=== PATIENT | female | born 1995 | race Caucasian/White ===

== ENCOUNTER 2018-02-02 21:30 | Emergency (ER) | payer BC ==
[~2018-02-02 21:30] MED LIST: AZIT-1 PO
[2018-02-02] MEDS ORDERED: MELA3TAB31 PO (21:41)
--- NOTE | 2018-02-02 21:43 | ER Report ---
History and Physical Time Seen By MD: 21:43 Hx. of Stated Complaint: PATIENT STATES SHE STARTED HAVING A LITTLE BIT OF PAIN IN RIGHT FLANK EARLIER TODAY HAD UA DONE AND WAS STARTED ON CIPRO, PATIENT HAS HAD ONCE DOSE OF THE CIPRO, PATIENT STATES THE FLANK PAIN HAS GOTTEN SIGNIFICANTLY WORSE THIS EVENING. PATIENT STATES IT HAS WAVES OF REALLY INTENSE PAIN OF 10/10. HPI/ROS CHIEF COMPLAINT: flank pain, urinary tract infection HISTORY OF PRESENT ILLNESS: This is a 22 year old female. She has been having right flank pain, had a UA done and started on Cipro for UTI. Has taken one dose today. Pain worsening and radiating to anterior abdomen. Starting to feel some pain on the right. Pain coming in waves. No fevers or chills. No chest pain or shortness of breath. Normal bowels. Dysuria and frequency. Allergies: Coded Allergies: Sulfa (Sulfonamide Antibiotics) (Verified Allergy, Intermediate, HIV ES, ) sulfamethoxazole (Verified Allergy, Mild, RASH, 06/20/15) trimethoprim (Verified Allergy, Mild, RASH, 06/20/15) Home Meds Active Scripts Ondansetron (ZOFRAN ODT) 4 Mg Tab.rapdis, 4 MG PO Q6H Y for NAUSEA/VOMITING, # 20 TAB.LESLIE 0 Refills Prov:YUMI SALDIVAR MD 02/02/18 Hydrocodone Bit/Acetaminophen (HYDROCODON-ACETAMINOPHEN 5-325) 1 Each Tablet, 1 EACH PO Q4H Y for PAIN, #12 TAB 0 Refills Prov:YUMI SALDIVAR MD 02/02/18 Ciprofloxacin Hcl (CIPROFLOXACIN HCL) 500 Mg Tablet, 500 MG PO Q12H, #8 TAB 0 Refills Prov:YUMI SALDIVAR MD 02/02/18 Reported Medications Melatonin (MELATONIN) 3 Mg Tablet, 6 MG PO QHS 02/02/18 Discontinued Scripts Azithromycin (ZITHROMAX) 250 Mg Tablet, 0 PO QDAY, #6 TAB Prov:CHELA BEACH DO 06/20/15 Reviewed Nurses Notes: Yes Hx Smoking: No Smoking Status: Never Smoker Constitutional Vital Sign - Last 24 Hours 02/02/18 02/02/18 02/02/18 02/02/18 21:36 21:45 22:00 22:15 Temp 98.9 Pulse 83 84 64 80 Resp 16 B/P (MAP) 126/80 Pulse Ox 96 98 97 91 O2 Delivery Room Air 02/02/18 02/02/18 02/02/18 02/02/18 22:30 22:35 23:00 23:05 Pulse ? 90 B/P (MAP) 122/79 (93) 115/71 (86) Pulse Ox 96 94 94 02/02/18 02/02/18 23:10 23:25 Pulse 78 78 B/P (MAP) 111/76 (88) Pulse Ox 92 92 Physical Exam General Appearance: The patient is alert. No acute distress. Eyes: Pupils are equal, round. No pallor, injection or icterus. ENT: Mucous membranes are moist. Respiratory: Lungs are clear to auscultation. Cardiovascular: Regular rate and rhythm. No murmurs, gallops or rubs. Normal capillary refill. Gastrointestinal: Abdomen is soft and non tender. Nondistended. Normal active bowel sounds. Neurological: Alert and oriented x3. Skin: Warm and dry. No rashes. Musculoskeletal: No tenderness in palpation of the lumbar spine and paraspinous muscles. DIFFERENTIAL DIAGNOSIS: After history and physical exam, differential diagnosis was considered for flank pain including but not limited to musculoskeletal causes, kidney stone, pyelonephritis, shingles, and intra-abdominal causes such as diverticulitis and appendicitis. Medical Decision Making Data Points Result Diagram: 02/02/18220402/02/182204 Laboratory Hematology Test 02/02/18 21:34 02/02/18 22:05 Urine Color Straw Urine Clarity Clear Urine pH 7.0 pH (4.8-9.5) Urine Specific [place] 1.006 Urine Protein Negative mg/dL (NEGATIVE) Urine Glucose (UA) Negative mg/dL (NEGATIVE) Urine Ketones Negative mg/dL (NEGATIVE) Urine Blood Small (NEGATIVE) Urine Nitrite Negative (NEGATIVE) Urine Bilirubin Negative (NEGATIVE) Urine Urobilinogen Negative mg/dL (0.2-1.9) Urine Leukocyte Esterase Small (NEGATIVE) Urine RBC 3 /HPF (0-2/HPF) Urine WBC 16 /HPF (0-5/HPF) Urine Squamous Epithelial Cells Moderate /LPF (</=FEW) Urine Transitional Epithelial Cells Moderate /LPF (NONE-FEW) Urine Bacteria Few /HPF (NONE-FEW) Urine Mucus None /HPF (NONE-FEW) Urine HCG, Qualitative Negative (NEGATIVE) Red Blood Count 4.60 M/uL (4.17-5.56) Mean Corpuscular Volume 89.4 fL (80.0-96.0) Mean Corpuscular Hemoglobin 30.4 pg (26.0-33.0) Mean Corpuscular Hemoglobin Concent 33.9 g/dL (32.0-36.0) Red Cell Distribution Width 13.8 % (11.5-14.5) Mean Platelet Volume 8.0 fL (7.2-11.1) Neutrophils (%) (Auto) 62.1 % (39.4-72.5) Lymphocytes (%) (Auto) 20.3 % (17.6-49.6) Monocytes (%) (Auto) 8.8 % (4.1-12.4) Eosinophils (%) (Auto) 8.1 % (0.4-6.7) Basophils (%) (Auto) 0.7 % (0.3-1.4) Nucleated RBC Relative Count (auto) 0.0 /100WBC Neutrophils # (Auto) 7.4 K/uL (2.0-7.4) Lymphocytes # (Auto) 2.4 K/uL (1.3-3.6) Monocytes # (Auto) 1.0 K/uL (0.3-1.0) Eosinophils # (Auto) 1.0 K/uL (0.0-0.5) Basophils # (Auto) 0.1 K/uL (0.0-0.1) Nucleated RBC Absolute Count (auto) 0.00 K/uL Sodium Level 140 mmol/L (137-145) Potassium Level 3.4 mmol/L (3.5-5.0) Chloride Level 101 mmol/L (98-107) Carbon Dioxide Level 27 mmol/L (22-31) Blood Urea Nitrogen 12 mg/dl (7-18) Creatinine 0.90 mg/dl (0.52-1.04) Glomerular Filtration Rate Calc > 60.0 Random Glucose 110 mg/dl (75-110) Calcium Level 9.3 mg/dl (8.4-10.2) Total Bilirubin 0.6 mg/dl (0.2-1.3) Aspartate Amino Transf (AST/SGOT) 23 U/L (0-35) Alanine Aminotransferase (ALT/SGPT) 26 U/L (0-56) Alkaline Phosphatase 67 U/L (0-126) C-Reactive Protein 2.2 mg/dl (<1.0) Total Protein 6.8 gm/dl (6.3-8.2) Albumin 4.0 g/dl (3.5-5.0) Chemistry Test 02/02/18 21:34 02/02/18 22:05 Urine Color Straw Urine Clarity Clear Urine pH 7.0 pH (4.8-9.5) Urine Specific [place] 1.006 Urine Protein Negative mg/dL (NEGATIVE) Urine Glucose (UA) Negative mg/dL (NEGATIVE) Urine Ketones Negative mg/dL (NEGATIVE) Urine Blood Small (NEGATIVE) Urine Nitrite Negative (NEGATIVE) Urine Bilirubin Negative (NEGATIVE) Urine Urobilinogen Negative mg/dL (0.2-1.9) Urine Leukocyte Esterase Small (NEGATIVE) Urine RBC 3 /HPF (0-2/HPF) Urine WBC 16 /HPF (0-5/HPF) Urine Squamous Epithelial Cells Moderate /LPF (</=FEW) Urine Transitional Epithelial Cells Moderate /LPF (NONE-FEW) Urine Bacteria Few /HPF (NONE-FEW) Urine Mucus None /HPF (NONE-FEW) Urine HCG, Qualitative Negative (NEGATIVE) White Blood Count 11.9 k/uL (4.5-11.0) Red Blood Count 4.60 M/uL (4.17-5.56) Hemoglobin 14.0 g/dL (12.0-16.0) Hematocrit 41.2 % (34.0-47.0) Mean Corpuscular Volume 89.4 fL (80.0-96.0) Mean Corpuscular Hemoglobin 30.4 pg (26.0-33.0) Mean Corpuscular Hemoglobin Concent 33.9 g/dL (32.0-36.0) Red Cell Distribution Width 13.8 % (11.5-14.5) Platelet Count 285 K/uL (150-450) Mean Platelet Volume 8.0 fL (7.2-11.1) Neutrophils (%) (Auto) 62.1 % (39.4-72.5) Lymphocytes (%) (Auto) 20.3 % (17.6-49.6) Monocytes (%) (Auto) 8.8 % (4.1-12.4) Eosinophils (%) (Auto) 8.1 % (0.4-6.7) Basophils (%) (Auto) 0.7 % (0.3-1.4) Nucleated RBC Relative Count (auto) 0.0 /100WBC Neutrophils # (Auto) 7.4 K/uL (2.0-7.4) Lymphocytes # (Auto) 2.4 K/uL (1.3-3.6) Monocytes # (Auto) 1.0 K/uL (0.3-1.0) Eosinophils # (Auto) 1.0 K/uL (0.0-0.5) Basophils # (Auto) 0.1 K/uL (0.0-0.1) Nucleated RBC Absolute Count (auto) 0.00 K/uL Glomerular Filtration Rate Calc > 60.0 Calcium Level 9.3 mg/dl (8.4-10.2) Total Bilirubin 0.6 mg/dl (0.2-1.3) Aspartate Amino Transf (AST/SGOT) 23 U/L (0-35) Alanine Aminotransferase (ALT/SGPT) 26 U/L (0-56) Alkaline Phosphatase 67 U/L (0-126) C-Reactive Protein 2.2 mg/dl (<1.0) Total Protein 6.8 gm/dl (6.3-8.2) Albumin 4.0 g/dl (3.5-5.0) Urinalysis Test 02/02/18 21:34 Urine Color Straw Urine Clarity Clear Urine pH 7.0 pH (4.8-9.5) Urine Specific [place] 1.006 Urine Protein Negative mg/dL (NEGATIVE) Urine Glucose (UA) Negative mg/dL (NEGATIVE) Urine Ketones Negative mg/dL (NEGATIVE) Urine Blood Small (NEGATIVE) Urine Nitrite Negative (NEGATIVE) Urine Bilirubin Negative (NEGATIVE) Urine Urobilinogen Negative mg/dL (0.2-1.9) Urine Leukocyte Esterase Small (NEGATIVE) Urine RBC 3 /HPF (0-2/HPF) Urine WBC 16 /HPF (0-5/HPF) Urine Squamous Epithelial Cells Moderate /LPF (</=FEW) Urine Transitional Epithelial Cells Moderate /LPF (NONE-FEW) Urine Bacteria Few /HPF (NONE-FEW) Urine Mucus None /HPF (NONE-FEW) Urine HCG, Qualitative Negative (NEGATIVE) EKG/Imaging Imaging EXAMINATION: CT Abdomen and Pelvis With Contrast 02/02/2018 9:48 PM HISTORY: Right-sided flank and abdominal pain. TECHNIQUE: Spiral scan was through the abdomen and pelvis during injection of nonionic iodinated intravenous contrast. Contrast: 75 mL of IV Isovue 370. One of the following dose optimization techniques was utilized in the performance of this exam: Automated exposure control; adjustment of the mA and/ or kV according to the patient's size; or use of an iterative reconstruction technique. Specific details can be referenced in the facility's radiology CT exam operational policy. COMPARISON STUDIES: none. FINDINGS: Liver / biliary: negative Pancreas: negative Spleen: negative Adrenal glands: negative Kidneys / retroperitoneum: Nonobstructive 4 mm stone in the midportion of the right kidney. No ureteral stone or obstruction. No enhancement features of pyelonephritis/UTI. Pelvic structures: Retroverted uterus with a well positioned indwelling IUD. No ovarian or adnexal pathology evident by CT. No pelvic free fluid. Bowel / peritoneum / mesenteries: Negative. Normal appendix. No ileocecal area inflammatory change. Vessels: negative Musculoskeletal / Body wall: negative Lymph node assessment: negative Lower chest: negative IMPRESSION: 1. 4 mm nonobstructive stone within the right kidney. No ureteral stone or obstruction. 2. No other acute finding. Normal appendix. Report Dictated By: Juan Sainz MD at 02/02/2018 10:59 PM ED Course/Re-evaluation Clinical Indication for ER IV: Hydration, IV Access ED Course Labs with slight elevation of white count. Urinalysis with signs of infection. CT scan negative for acute kidney stone, but there is a silent stone in the kidney. Improved symptoms with Morphine and Zofran. Home with continued Cipro and addition of Lortab and Zofran. Decision to Disposition Date: Feb 02, 2018 Decision to Disposition Time: 23:19 Depart Departure Latest Vital Signs Vital Signs Date Time Temp Pulse Resp B/P (MAP) Pulse Ox O2 Delivery O2 Flow Rate FiO2 02/02/18 23:25 78 111/76 (88) 92 02/02/18 21:36 98.9 16 Room Air Impression: Primary Impression: Urinary tract infection Condition: Improved Disposition: HOME OR SELF-CARE Referrals: ELVIRA CASTILLO MD (PCP) New Scripts Ondansetron (ZOFRAN ODT) 4 Mg Tab.rapdis 4 MG PO Q6H Y for NAUSEA/VOMITING, #20 TAB.LESLIE 0 Refills Prov: YUMI SALDIVAR MD 02/02/18 Hydrocodone Bit/Acetaminophen (HYDROCODON-ACETAMINOPHEN 5-325) 1 Each Tablet 1 EACH PO Q4H Y for PAIN, #12 TAB 0 Refills Prov: YUMI SALDIVAR MD 02/02/18 Ciprofloxacin Hcl (CIPROFLOXACIN HCL) 500 Mg Tablet 500 MG PO Q12H, #8 TAB 0 Refills Prov: YUMI SALDIVAR MD 02/02/18 Patient Instructions: Urinary Tract Infection in Women (ED) Additional Instructions: Keep taking the Cipro twice a day. We may want to continue this for 7 days instead of the 3 days given by your primary care provider. We will provide a prescription for 4 more days that you can hold onto. Fill this and take 4 more days if you are not better in 3 days. Take Ibuprofen 200mg over the counter tablets, take 4 tablets every 8 hours with food. Take Lortab 5/325, one every 4 hours as needed for severe pain. Take Zofran 4mg, one every 6 hours as needed for nausea. Problem Qualifiers Primary Impression: Urinary tract infection Urinary tract infection type: acute cystitis Hematuria presence: without hematuria Qualified Codes: N30.00 - Acute cystitis without hematuria YUMI SALDIVAR MD Feb 02, 2018 21:43
[2018-02-02] MEDS ORDERED: ONDANSETRON 4 MG/2 ML VIAL IVP ONE (21:50)
[2018-02-02] MEDS ORDERED: MORPHINE 4 MG/ML SDV IVP ONE (21:50)
[2018-02-02] MEDS ORDERED: NS(*) 0.9% 1000 ML BAG 1,000 ML IV ONE (21:50)
[2018-02-02 22:12] LABS: PLATELET COUNT, AUTOMATED 285 K/uL (150-450)
[2018-02-02] MEDS ORDERED: IOPAMIDOL 76% 75 ML INFUS BTL 75 ML ONE (22:14)
--- NOTE | 2018-02-02 23:07 | RADIOLOGY IMAGING REPORT ---
[place] [facility] [place] Lydia Delarosa : 1995 MR: [id number] V: [id number] EXAM DATE: ORDERING PHYSICIAN: YUMI SALDIVAR TECHNOLOGIST: Location: [facility] - [place] Patient: Lydia Delarosa : 1995 Visit/Account:[id number] Date of Sevice: 02/02/2018 EXAMINATION: CT Abdomen and Pelvis With Contrast 02/02/2018 9:48 PM HISTORY: Right-sided flank and abdominal pain. TECHNIQUE: Spiral scan was through the abdomen and pelvis during injection of nonionic iodinated in travenous contrast. Contrast: 75 mL of IV Isovue 370. One of the following dose optimization techniques was utilized in the performance of this exam: Autom ated exposure control; adjustment of the mA and/or kV according to the patient's size; or use of an i terative reconstruction technique. Specific details can be referenced in the facility's radiology C T exam operational policy. COMPARISON STUDIES: none. FINDINGS: Liver / biliary: negative Pancreas: negative Spleen: negative Adrenal glands: negative Kidneys / retroperitoneum: Nonobstructive 4 mm stone in the midportion of the right kidney. No ureter al stone or obstruction. No enhancement features of pyelonephritis/UTI. Pelvic structures: Retroverted uterus with a well positioned indwelling IUD. No ovarian or adnexal pathology evident by CT. No pelvic free fluid. Bowel / peritoneum / mesenteries: Negative. Normal appendix. No ileocecal area inflammatory change. Vessels: negative Musculoskeletal / Body wall: negative Lymph node assessment: negative Lower chest: negative IMPRESSION: 1. 4 mm nonobstructive stone within the right kidney. No ureteral stone or obstruction. 2. No other acute finding. Normal appendix. Report Dictated By: Juan Sainz MD at 02/02/2018 10:59 PM Report E-Signed By: Juan Sainz MD at 02/02/2018 11:04 PM WSN:[id number]
[2018-02-02] MEDS ORDERED: ONDANSETRON 4 MG ODT TH SL ONE (23:20)
[2018-02-02] MEDS ORDERED: ACET/HYDROC 5/325MG TH ER ONLY 2 TAB/BOTTLE PO ONE (23:20)
[2018-02-02] MEDS ORDERED: ONDA4TAB PO (23:22)
[2018-02-02] MEDS ORDERED: CIPR-214 PO (23:22)
[2018-02-02] MEDS ORDERED: LOR5/325 PO (23:22)
[2018-02-02 23:25] VITALS: BP 111/76
[2018-02-02] MEDS ORDERED: APAP/HYDROCODONE 325/5 TAB PO ONE (23:25)
== END 2018-02-02 23:32 | disposition home or self-care (01) ==
LOC: ER 21:46
DX: N30.00 Acute cystitis without hematuria (principal)
CPT/HCPCS: 74177; 81001; 81025; 85025; 86140; 96361; 96374; 96375; 99284; J2270; J2405; J7030; Q9967; S0119; 82040; 82247; 82310; 82374; 82435; 82565; 82947; 84075; 84132; 84155; 84295; 84450; 84460; 84520

== ENCOUNTER → 2018-05-28 | Outpatient (CLI) | payer BC ==
[~2018-05-28] MED LIST changes: +CIPR-214 PO; +IOPAMIDOL 76% 75 ML INFUS BTL 75 ML ONE; +LOR5/325 PO; +MELA3TAB31 PO; +ONDA4TAB PO
--- NOTE | 2018-05-28 16:15 | RADIOLOGY IMAGING REPORT ---
FACILITY: [facility] - [place] PATIENT NAME: Lydia Delarosa : 1995 MR: [id number] V: [id number] EXAM DATE: ORDERING PHYSICIAN: ALEXA ROY TECHNOLOGIST: Location: [facility] - [place] Patient: Lydia Delarosa : 1995 Visit/Account:[id number] Date of Sevice: 05/28/2018 ABDOMEN/PELVIS WITH CONTRAST Additional pertinent History: History of kidney stones TECHNIQUE: Spiral scan was through the abdomen and pelvis during injection of nonionic iodinated in travenous contrast. One of the following dose optimization techniques was utilized in the performance of this exam: Autom ated exposure control; adjustment of the mA and/or kV according to the patient's size; or use of an i terative reconstruction technique. Specific details can be referenced in the facility's radiology C T exam operational policy. Contrast: 88 mL of IV Isovue-370. COMPARISON STUDIES: 02/02/2018. FINDINGS: Liver / biliary: Homogenous liver. No focal lesions. Gallbladder without stones or wall thickening. Pancreas: negative Spleen: Negative Adrenal glands: negative Kidneys / retroperitoneum: Nonobstructing 3 mm stone in the right kidney mid level. No renal obstruc tive uropathy change noted within either kidney. Homogenous attenuation of the renal cortex with no evidence of pyelonephritis. Pelvic structures: Retroflexed uterus. IUD well positioned Bowel / peritoneum / mesenteries: No colonic inflammation. Appendix normal with no appendicitis. 05/28/2018 Vessels: negative Musculoskeletal / Body wall: negative Lymph node assessment: negative Lower chest: negative IMPRESSION: 1. Unremarkable CT scan of the abdomen. No acute abdominal or pelvic pathology. Nonobstructing 4 m m stone in the right kidney. No interval change when compared to the previous examination Report Dictated By: Reji Canchola MD at 05/28/2018 3:57 PM Report E-Signed By: Reji Canchola MD at 05/28/2018 4:12 PM WSN:[email or web address]
== END ==
LOC: CT 06:53
PROVIDERS: ATTEND Physician Assistant
DX: N20.0 Calculus of kidney (principal); Z97.5 Presence of (intrauterine) contraceptive device
CPT/HCPCS: 74177; Q9967